=== PATIENT | female | born 1945 | race Caucasian/White ===

== ENCOUNTER 2016-02-25 18:19 | Inpatient (IN) | payer MEDICARE, BC ==
[~2016-02-25] VITALS: Ht 152.4 cm; Wt 43.4 kg
[~2016-02-25 18:19] MED LIST: ACETAMINOPHEN325 MG PO; BENZONATATE200 MG PO; CALMOSEPTINE OI71 GM TOPICAL; FLORAJEN3 CAPS460 MG PO; LEVOTHYROXINE50 MCG PO; LISINOPRIL10 MG PO; LOVENOX40 MG/0.4 SC; MUCINEX DM ER1 EAC1 PO; PROTONIX40 MG PO; RESTORIL15 MG PO; STERAPRED DS 1210 MG PO; XOPENEX 0.0.63 MG/3 INH
[2016-02-25 19:49] LABS: BASOPHILS 0.1 % (0.0-2.0); EOSINOPHILS 0 % (0-7); HEMATOCRIT 40.5 % (36.0-48.0); HEMOGLOBIN 13.4 g/dL (12-16); IMMATURE GRANULOCYTES 0.5 % (0-5); LYMPHOCYTES 6.1 % (15-50); MCH 29.1 pg (26.0-34.0); MCHC 33.1 g/dL (31.0-37.0); MCV 87.9 fL (80.0-100.0); MEAN PLATELET VOLUME 8.7 fL (7.4-10.4); MONOCYTES 4.1 % (2-11); NEUTROPHILS 89.2 % (40-80); RBC 4.61 10x6/uL (4.00-5.40); RDW 13.1 % (11.5-14.5); WBC 17.5 10x3/uL (4.8-10.8)
[2016-02-25 19:53] LABS: PLATELET COUNT 269 10x3/uL (130-400)
[2016-02-25 20:06] LABS: ALBUMIN 3.4 g/dL (3.4-5.0); ALKALINE PHOSPHATASE 67 U/L (46-116); ALT (SGPT) 17 U/L (10-68); BILIRUBIN - TOTAL 0.73 mg/dL (0.2-1.3); CALC OSMOLALITY 287 mosm/kg (275-300); CALCIUM 9.4 mg/dL (8.5-10.1); CARBON DIOXIDE 30.2 mmol/L (21.0-32.0); CHLORIDE - SERUM 103 mmol/L (98-107); CREATININE - SERUM 0.7 mg/dL (0.6-1.3); GLUCOSE 132 mg/dL (74-106); POTASSIUM - SERUM 3.8 mmol/L (3.5-5.1); PROTEIN - SERUM 7.3 g/dL (6.4-8.2); SODIUM 142 mmol/L (136-145); UREA NITROGEN 22 mg/dL (7-18); eGFR NON AFRICAN AMERICAN 88 mL/min (90-120)
[2016-02-25 20:53] LABS: APPEARANCE CLOUDY (CLEAR); BILIRUBIN NEGATIVE (NEGATIVE); COLOR YELLOW (YELLOW); GLUCOSE 50 mg/dL (NEGATIVE); KETONE MODERATE mg/dL (NEGATIVE); LEUKOCYTE ESTERASE 1+ (NEGATIVE); NITRITE NEGATIVE (NEGATIVE); PROTEIN 1+ mg/dL (NEGATIVE); UROBILINOGEN NORMAL (NORMAL)
[2016-02-25 20:54] LABS: BACTERIA MANY /hpf (NONE SEEN); EPITHELIAL CELLS 0-5 /hpf (0-5); MUCUS <1+ /lpf (NONE SEEN); RED CELLS - URINE 0-5 /hpf (0-5)
[2016-02-26] VITALS: BP 119/63
--- NOTE | 2016-02-26 00:20 | NUR ---
RECEIVED TO ROOM 2102 ALERT AND ORIENTED 70Y/O FEMALE UNDER DR HERNANDEZ WITH DX OF DIVERTICULITIS VIA W/C FROM ER. AT SIDE. PLACED ON FALL PRECAUTIONS, STAR ON DOOR, YELLOW BAND ON WRIST, NONSKID SOCKS PLACED ON BILAT FEET. BSC PROVIDED, HOB UP SR UP X2, C/L IN REACH. BOX ALARM PLACED, ON AND WORKING. VOICES NO C/O NAUSEA/VOMITING OR DIARRHEA OR PAIN AT THIS TIME. LEFT ARM IV WITH REDNESS NOTED AT SITE. ASPERRATES AND FLUSHES W/O DIFF. UP WITH ASSISTANCE ONLY. UNDERSTANDING VERBALIZED. CONTINUE TO MONITOR.
[2016-02-26 01:25] VITALS: BP 119/63; BMI 19.0
--- NOTE | 2016-02-26 02:30 | NUR ---
AWAKE, ALERT VOICES NO C/O. C/L IN REACH.
[2016-02-26 04:00] VITALS: BP 121/61
--- NOTE | 2016-02-26 04:36 | NUR ---
EYES CLOSED, RESP EVEN AND UNLABORED WITH NO S/S OF ACUTE DISTRESS NOTED. C/L IN REACH. CONTINUE TO MONITOR.
--- NOTE | 2016-02-26 08:01 | NUR ---
AM MEDS GIVEN UP TO BSC WITH ASSISTANCE. ALERT AND ORIENTED. BOX ALARM ON
--- NOTE | 2016-02-26 10:48 | NUR ---
PATIENT UP TO BSC WITH ASSISTANCE THIS AM. CO HEADACHE. DR WALLACE CALLED AND ORDERS RECEIVED FOR TYLENOL AND TO CHANGE TO INPT ADMIT. INFORMED PATIENT. NO APPARENT DISTRESS WILL CONTINUE TO MONITOR.
[2016-02-26 11:04] VITALS: Ht 152.4 cm; Wt 43.4 kg
--- NOTE | 2016-02-26 12:00 | NUR ---
RATIONALE FOR SCD'S EXPLAINED. REFUSED SCD'S
--- NOTE | 2016-02-26 18:00 | NUR ---
IV SL'D AT THIS TIME, LUCERO WELL. HOB UP SR UP X2, C/L IN REACH, ON FALL PRECAUTIONS FOR SAFETY, NONSKID SOCKS IN PLACE ON BILAT FEET. VISITING WITH AT BEDSIDE. VOICES NO C/O PAIN OR DISCOMFORT AT THIS TIME. CONTINUE TO MONITOR.
[2016-02-26 21:43] VITALS: BP 117/58
--- NOTE | 2016-02-26 22:55 | NUR ---
EYES CLOSED, RESP UNLAB WITH NO S/S OF ACUTE DISTRESS NOTED. HOB UP SR U X2, C/L IN REACH. CONTINUE TO MONITOR.
--- NOTE | 2016-02-26 23:12 | NUR ---
IVPB ANTIBIOTIC HUNG AT THIS TIME VIA PUMP TO LEFT FA W/O DIFF. LUCERO WELL. C/L IN REACH.
[2016-02-27 01:28] VITALS: BP 131/59
[2016-02-27 07:52] VITALS: BP 125/60
--- NOTE | 2016-02-27 08:20 | NUR ---
ASSESSMENT DONE. PT A/O. DENIES NEEDS. DIET ADVANCED TO SOFT. PT DENIES N/V OR ABD PAIN. CALL LIGHT WITH IN REACH. WILL CONT. TO MONIOR.
[2016-02-27 09:25] LABS: BASOPHILS 0.4 % (0.0-2.0); EOSINOPHILS 0.7 % (0-7); HEMATOCRIT 38.9 % (36.0-48.0); HEMOGLOBIN 12.9 g/dL (12-16); IMMATURE GRANULOCYTES 0.4 % (0-5); LYMPHOCYTES 17.8 % (15-50); MCH 28.9 pg (26.0-34.0); MCHC 33.2 g/dL (31.0-37.0); MONOCYTES 7.7 % (2-11); PLATELET COUNT 261 10x3/uL (130-400); RBC 4.47 10x6/uL (4.00-5.40); RDW 13.2 % (11.5-14.5)
[2016-02-27 09:37] LABS: WBC 7.4 10x3/uL (4.8-10.8)
--- NOTE | 2016-02-27 09:42 | NUR ---
LAB BEING DRAWN. NO DISTRESS. WILL CONTINUE TO MONITOR
[2016-02-27 09:55] LABS: ALBUMIN 2.7 g/dL (3.4-5.0); ALKALINE PHOSPHATASE 52 U/L (46-116); ALT (SGPT) 14 U/L (10-68); CALCIUM 8.3 mg/dL (8.5-10.1); CARBON DIOXIDE 25.3 mmol/L (21.0-32.0); CHLORIDE - SERUM 103 mmol/L (98-107); CREATININE - SERUM 0.6 mg/dL (0.6-1.3); GLUCOSE 140 mg/dL (74-106); POTASSIUM - SERUM 3.4 mmol/L (3.5-5.1); PROTEIN - SERUM 6.4 g/dL (6.4-8.2); SODIUM 140 mmol/L (136-145); eGFR NON AFRICAN AMERICAN > 90 mL/min (90-120)
[2016-02-27 09:56] LABS: CALC OSMOLALITY 280 mosm/kg (275-300); UREA NITROGEN 12 mg/dL (7-18)
[2016-02-27 12:08] VITALS: BP 131/53
--- NOTE | 2016-02-27 13:26 | NUR ---
PT SITTING UP IN BED VISITING WITH FAMILY. A/O. DENIES N/V/D. DENIES ABD PAIN. CALL LIGHT WITH IN REACH.
--- NOTE | 2016-02-27 15:27 | NUR ---
PT'S IV INFILTRATED. RE-SITED TO LEFT UPPER ARM WITH 20G X1 ATTEMPT. PT TOLERATED WELL.
[2016-02-27 15:51] VITALS: BP 141/63
--- NOTE | 2016-02-27 16:30 | NUR ---
PT SITTING UP IN BED WATCHING TV. A/O. DENIES NEEDS. CALL LIGHT WITH IN REACH. WILL CONT. TO MONITOR.
--- NOTE | 2016-02-27 18:36 | NUR ---
PT A/O WATCHING TV. DENIES NEEDS OR DISCOMFORT AT THIS TIME. CALL LIGHT WITH IN REACH.
--- NOTE | 2016-02-27 19:30 | NUR ---
ASSESSMENT COMPLETE, DENIES NEEDS AT THIS TIME. LYING SUPINE WITH HOB UP SR UP X2, C/L IN REACH. WATCHING TV WITH AT BEDSIDE. ON FALL PRECAUTIONS FOR SAFETY, DOES USE C/L FOR ASSISTANCE UP TO BSC. LUCERO WELL. NONSKID SOCKS IN PLACE. CONTINUES TO REFUSE TO WEAR SCDS. RESP EVEN AND UNLAB, LEFT UPPER ARM SL INTACT WITH NO R/S NOTED AT SITE. CONTINUE TO MONITOR.
[2016-02-27 21:06] VITALS: BP 121/56
--- NOTE | 2016-02-27 22:15 | NUR ---
EYES CLOSED, RESP EVEN AND UNLAB WITH NO S/S OF ACUTE DISTRESS NOTED. C/L IN REACH. CONTINUE TO MONITOR.
[2016-02-28 00:43] VITALS: BP 119/49
[2016-02-28 04:59] LABS: BASOPHILS 0.6 % (0.0-2.0); EOSINOPHILS 1.9 % (0-7); HEMOGLOBIN 12.8 g/dL (12-16); IMMATURE GRANULOCYTES 0.6 % (0-5); LYMPHOCYTES 28.7 % (15-50); MCH 28.6 pg (26.0-34.0); MCHC 32.8 g/dL (31.0-37.0); MCV 87.1 fL (80.0-100.0); MEAN PLATELET VOLUME 9.1 fL (7.4-10.4); NEUTROPHILS 56.2 % (40-80); PLATELET COUNT 296 10x3/uL (130-400); RBC 4.48 10x6/uL (4.00-5.40); RDW 13.1 % (11.5-14.5)
[2016-02-28 05:13] LABS: ALBUMIN 2.6 g/dL (3.4-5.0); ALKALINE PHOSPHATASE 46 U/L (46-116); ALT (SGPT) 13 U/L (10-68); BILIRUBIN - TOTAL 0.35 mg/dL (0.2-1.3); CALCIUM 8.7 mg/dL (8.5-10.1); CARBON DIOXIDE 28.1 mmol/L (21.0-32.0); CHLORIDE - SERUM 106 mmol/L (98-107); POTASSIUM - SERUM 3.6 mmol/L (3.5-5.1); SODIUM 142 mmol/L (136-145)
[2016-02-28 05:18] LABS: WBC 5.3 10x3/uL (4.8-10.8)
[2016-02-28 05:26] VITALS: BP 118/56
[2016-02-28 05:31] LABS: CALC OSMOLALITY 285 mosm/kg (275-300); CREATININE - SERUM 0.8 mg/dL (0.6-1.3); GLUCOSE 92 mg/dL (74-106); UREA NITROGEN 22 mg/dL (7-18); eGFR NON AFRICAN AMERICAN 75 mL/min (90-120)
--- NOTE | 2016-02-28 07:24 | HP ---
PATIENT: JERI LI MEDICAL RECORD: [id number] ACCOUNT: [id number] LOCATION:[address] : [birth year] ADMISSION DATE: 02/26/16 HISTORY AND PHYSICAL EXAMINATION Admission History and Physical HISTORY OF PRESENT ILLNESS: A 70-year-old female presented to the Emergency Room yesterday evening with nausea, vomiting, diarrhea, lower abdominal pain, subjective fever and chills. PAST MEDICAL HISTORY: Significant for hypertension and hypothyroidism. ALLERGIES: No known drug allergies. PRIMARY CARE PHYSICIAN: Nate Rich MD PAST SURGICAL HISTORY: Denies surgeries. CURRENT MEDICATIONS: Levothyroxine 50 mcg 1 p.o. daily. REVIEW OF SYSTEMS: CONSTITUTIONAL: No acute change in weight or appetite. HEENT: No cephalgia, visual changes, tinnitus, epistaxis or dysphagia. CARDIOVASCULAR: Denies chest pain, denies palpitations. PULMONARY: Denies hemoptysis, denies night sweats. GASTROINTESTINAL: Denies hematochezia, melena or hematemesis. Does admit nausea and vomiting last night, presently resolved. GENITOURINARY: Admits frequency, burning with urination. MUSCULOSKELETAL: No acute changes. ENDOCRINE: Denies polyuria, polydipsia, or polyphagia. PHYSICAL EXAMINATION: VITAL SIGNS: Temp 98.6, blood pressure is 121/61, heart rate 90, respirations 18, and O2 sats 98% room air. GENERAL: Alert and oriented, in no present distress. HEENT: Normocephalic and atraumatic. Eyes: Pupils are equal, round, and reactive to light and accommodation. Extraocular muscles are intact. Conjunctiva was not injected. Ears: Canals patent, TMs are intact. Nose: Nares patent without drainage. Throat: No erythema, no exudates. NECK: Supple. No lymphadenopathy, no JVD. HEART: Regular rate and rhythm. LUNGS: Clear to auscultation bilaterally. Breathing is nonlabored. ABDOMEN: Soft, mild lower abdominal tenderness. No rebound, no guarding. EXTREMITIES: Present times 4, no edema. NEUROLOGIC: Intact. SKIN: Warm and dry. No rash. LABORATORY DATA: Urinalysis: Yellow, cloudy, moderate ketones, 1+ leukocyte esterase, 5-10 wbc's per high powered field, many bacteria. CBC: White count 17,500, hemoglobin 13.4, hematocrit 40.5, and platelets 269. Chemistry shows a sodium of 142, potassium 3.8, chloride 103, bicarbonate 30.2, BUN 22, creatinine 0.7, and glucose of 132. LFTs is normal. Blood and urine cultures are pending. DIAGNOSTIC DATA: CT abdomen and pelvis shows acute diverticulitis, sigmoid HISTORY AND PHYSICAL [id number] JERI LI colon. No abscess or perforation. Also, incidental finding of a 2.4 x 1.4 cm left lower lobe peripheral pulmonary nodule, suspicious for malignancy. ASSESSMENT AND PLAN: 1. Acute urinary tract infection. She was started on Levaquin 500 mg IV q.24 hours in the ER. We will continue. 2. Diverticulitis, metronidazole 500 mg t.i.d. IV. 3. Hypothyroid. Continue levothyroxine 50 mcg daily. 4. A 2.4 x 1.4 cm left lower lobe peripheral pulmonary nodule. Recommend a PET scan as an outpatient and follow up with her primary care physician, Dr. Nate Rich. TRANSINT:[id number] Voice Confirmation ID: [id number] DOCUMENT ID: [id number] CHYNA HERNANDEZ DO at 0724 CC: [id number] DICTATION DATE: 02/26/16 0657 DRYWALL BOARDHANGER: 02/26/16716 ADM IN [place] [id number] [place] [id number]
[2016-02-28] MEDS ORDERED: FLORAJEN3 CAPS460 MG PO (07:31)
[2016-02-28] MEDS ORDERED: FLAGYL500 MG PO (07:33)
[2016-02-28] MEDS ORDERED: LEVAQUIN500 MG PO (07:34)
--- NOTE | 2016-02-28 07:51 | NUR ---
ASSESSMENT DONE. PT A/O. SITTING UP IN BED WATCHING TV. DENIES N/V/D OR ABD PAIN. CALL LIGHT WITH IN REACH. WILL CONT. TO MONITOR.
[2016-02-28 08:00] VITALS: BP 126/51
--- NOTE | 2016-02-28 08:20 | NUR ---
Patient Name: JERI LI Admission Status: ER Accout number: [id number] Admission Date: 02-26-2016 : 1945 Admission Diagnosis: Attending: MEDINA Current LOS: 2 Anticipated DC Date: 02-28-2016 Planned Disposition: Home Primary Insurance: MEDICARE A & B Is the patient Alert and Oriented? Yes * How many steps to enter\exit or inside your home? 12 * PCP DR SANTIAGO * Pharmacy [facility] [address] * Preadmission Environment Home with Family * ADLs Partial Dependent * Partial ADLs (Assistance needed) Ambulation: PT USES CANE AND ROLLING WALKER DME PROVIDER: CAROLINE * Equipment Cane Other Rolling Walker Tub Bench * Other Equipment HAND HELD SHOWER NOZEL, ANTI-SLIP MAT IN TUB/SHOWER HAND RAIL FULL LENGHT OF [place] AND DOUBLE HAND RAILS AT TOP AND BOTTOM OF [place]. * List name and contact numbers for known caregivers / representatives who currently or will assist patient after discharge: RADHA STEIN, SPOUSE, (CELL) [phone] (HOME) * Community resources currently utilized None * Please name any agencies selected above. PT HAS PREVIOUSLY USED [employer] IN THE PAST AND INFORMED THAT SHE WAS VERY HAPPY WITH [employer]. * Additional services required to return to the preadmission environment? No * Can the patient safely return to the preadmission environment? Yes * Has this patient been hospitalized within the prior 30 days at any hospital? No Discharge Planning Comments: CM MET WITH PATIENT TO ASSESS DC PLAN/NEEDS. PT STATED SHE LIVES AT HOME WITH HER AND IS MOSTLY INDEPENDENT IN HER CARE/ADL'S. SHE STATED SHE USES A CANE MOSTLY AROUND HER HOUSE AND USES HER ROLLING WALKER ANY TIME SHE GOES OUT OF THE HOUSE. SHE STATED HER DRIVES HER AND WILL PROVIDE HER TRANSPORTATION HOME AT DISCHARGE. SHE HAS TWELVE STEPS INSIDE HER HOME, BUT HAS SAFETY RAILING AND STATED SHE HAS BEEN MANAGING STAIRS WELL WITH NEW RAILING HER INSTALLED. SHE STATED SHE HAS USED [facility] IN THE PAST AND WAS VERY PLEASED WITH THEIR SERVICES, BUT DOES NOT FEEL SHE WILL NEED HOME HEALTH OR ANY REHAB SERVICES AT THIS DISCHARGE. SHE STATED SHE HAS ALL NEEDED DME EQIUPMENT AND VOICED NO DME NEEDS. SHE REPORTED HER WALKER WAS PROVIDED BY [employer]. PT STATED HER HOME IS A SAFE PLACE AND PLANS TO RETURN HOME WITH HER AT DISCHARGE. DM IMM PRESENTED TO PATIENT. IMM SIGNED AND PLACED IN CHART. Mechanic Senior: Char Lindsey RN
--- NOTE | 2016-02-28 10:00 | NUR ---
REC'D PT FROM ICU VIA BED. PT A/O X3. BROWN CATH PATENT TO BSD WITH APPROX 450ML OF DARK YELLOW URINE. 20G IV TO RIGHT FOREARM PATENT WITH NS@ 75ML/HR INFUSING. IV WITH OUT S/S INFILTRATION. PT WEARING SCD'S. SCD'S REMOVED AND SKIN ASSESSED. NO S/S OF BREAKDOWN. PT'S BOTTOM WITHOUT BREAKDOWN OR REDNESS. PT IS ABLE TO ASSIST WITH TURNING. O2 AT 2L VIA NC. VS - B/P 153/70, P70, R16, T97.4, O2 SAT 99%. ORIENTED PT TO ROOM. PLACED CALL LIGHT AND PHONE WITH IN REACH. PT IS WEARING GLASSES AND HAS DENTURES IN. SHE WEARS BOTH UPPERS AND LOWERS. PT DOES NOT WANT TO USE A PILLOW AT THIS TIME. WILL CONT. TO MONITOR.
--- NOTE | 2016-02-28 10:18 | NUR ---
NO NEEDS VOICED. AT BS. CALL LIGHT IN REACH. WILL CONT. PLAN OF CARE.
--- NOTE | 2016-02-28 10:31 | NUR ---
DISCHARGE INSTRUCTIONS GIVEN TO PT AND SPOUSE. IV REMOVED. PT D/C HOME VIA PRIVATE VEHICLE. TAKE OUT VIA W/C.
--- NOTE | 2016-02-29 07:57 | DS ---
PATIENT:JERI LI :45 MEDICAL RECORD: [id number] DISCHARGE SUMMARY ADMISSION DATE: 02/26/16 DISCHARGE DATE: 02/28/16 DATE OF ADMISSION: 02/26/2016. DATE OF DISCHARGE: 02/28/2016. ADMISSION DIAGNOSES: Acute urinary tract infection and diverticulitis. Also, history of hypothyroidism. Also, a history of a lower lobe pulmonary nodule. Further research--this has been seen prior and is unchanged, she has had prior PET scan prior evaluation. HOSPITAL COURSE: The patient was admitted to the Emergency Room unassigned medicine. Her primary care physician is Dr. Wan Rich. She had chills, fever, leukocytosis, dysuria and change in bowel habits, diarrhea. CT scan showed a sigmoid diverticulitis, no abscess in the stable pulmonary nodules. White count on admission was 17,500. She was started on IV Flagyl and IV Levaquin for the UTI. Clear liquid diet. She improved rapidly. She is tolerating a regular diet. She is afebrile. White count 5.3.: Hemoglobin is 12.8, hematocrit is 39. Chemistries: Sodium 142, potassium 3.6, chloride 106, bicarbonate 28.1. BUN 22, creatinine 0.8. She is alert and oriented, in no distress. Vital signs on discharge temperature 97.5, blood pressure 118/56, heart rate 85, respirations 18, O2 sat 97% on room air. She is alert and oriented. No distress, anxious to go home. CONDITION ON DISCHARGE: She is discharged in significantly improved condition. We will discharge with p.o. Flagyl for 10 more days t.i.d. 500 mg t.i.d. She will resume her levothyroxine. She is also discharged on Levaquin 500 mg p.o. daily for 5 days. She will follow up with Dr. Rich and return to the ER with any worsening symptoms. School Secretary on a bland diet, advance as tolerated. TRANSINT:[id number] Voice Confirmation ID: [id number] DOCUMENT ID: [id number] CHYNA HERNANDEZ DO at 0757 CC: [id number] DICTATION DATE: 02/28/16 0740 TRANSFORMATION ANALYST: 02/28/16 0758 DIS IN 02/28/[address] [facility] [address] [place] [address]
== END 2016-02-28 10:35 | disposition home or self-care (01) | DRG 690 ==
LOC: D.ER 18:19 → OBSVTIME 23:53 → D.M2 23:53
PROVIDERS: Emergency Medicine; Family Medicine; Nurse Practitioner Family; ADMIT Family Medicine
DX: N39.0 Urinary tract infection, site not specified (principal); K57.92 Diverticulitis of intestine, part unspecified, without perforation or abscess without bleeding

== ENCOUNTER → 2016-03-13 08:27 | Outpatient (CLI) | payer MEDICARE, BC ==
[2016-02-26 11:04] VITALS: BMI 18.9
[~2016-03-13 08:27] MED LIST changes: +FLAGYL500 MG PO; +LEVAQUIN500 MG PO
== END | disposition home or self-care (01) ==
LOC: D.RAD 08:27
DX: R91.8 Other nonspecific abnormal finding of lung field (principal)

== ENCOUNTER → 2016-09-24 08:16 | Outpatient (CLI) | payer MEDICARE, BC ==
[2016-02-26 11:04] VITALS: BMI 18.9
[2016-09-24 10:38] LABS: CREATININE - SERUM 0.9 mg/dL (0.6-1.3)
== END | disposition home or self-care (01) ==
LOC: D.RT 08:16
PROVIDERS: Internal Medicine Pulmonary Disease
DX: R91.1 Solitary pulmonary nodule (principal)

== ENCOUNTER 2017-11-04 19:31 | Observation (INO) | payer MEDICARE, BC ==
[~2017-11-04] VITALS: Ht 152.4 cm; Wt 43.6 kg
--- NOTE | ~2017-11-04 | OP ---
PATIENT NAME: JERI LI MEDICAL RECORD: [id number] :45 [facility] ADMISSION DATE:11/04/17 SURGEON: SAY JONES MD DATE OF OPERATION: 11/05/2017 PROCEDURES: 1. PTCA stent RCA. 2. Left heart catheterization. 3. Selective coronary angiography. 4. Left ventriculogram. PROCEDURE IN DETAIL: After informed consent was obtained and after a detailed description of risks, benefits as well as alternative therapies, the patient elected to proceed with angiogram and angioplasty. The right femoral area was prepped and draped in normal sterile fashion. Right femoral artery was cannulated via modified Seldinger technique with placement of 6-Setswana sheath. All catheters exchanged through this sheath. FINDINGS: Left ventriculogram was performed in standard 30-degree ALANIZ view, reveals good cardiac wall motion throughout all segments. Overall ejection fraction estimated 60%. SELECTIVE CORONARY ANGIOGRAPHY: 1. Left main is with no significant angiographic disease. 2. Left anterior descending has moderate irregularities, but no flow-limiting stenosis. 3. The left circumflex has moderate irregularities, but no flow-limiting stenosis. 4. The right coronary artery has 95% stenosis in the mid vessel. PTCA STENT OF THE RIGHT CORONARY: The stent used was a 2.75 x 18 mm Cristo. Result was 0% residual stenosis. OVERALL IMPRESSION: Successful percutaneous transluminal coronary angioplasty stent of the right coronary artery going from 95% initial stenosis to 0% residual. TRANSINT:[id number] Voice Confirmation ID: [id number] DOCUMENT ID: [id number] SAY JONES MD at 1439 CC: [id number] DICTATION DATE: 11/05/17 1147 HAT AND CAP PARTS CUTTER HAND: 11/05/17 1156 ADM IN [place] [id number] [place] [address]
--- NOTE | ~2017-11-04 | DS ---
PATIENT:JERI HERNANDEZ :45 MEDICAL RECORD: [id number] DISCHARGE SUMMARY ADMISSION DATE: 11/04/17 DISCHARGE DATE: DISCHARGE DIAGNOSES: 1. Unstable angina. 2. Coronary artery disease. 3. Percutaneous transluminal coronary angioplasty stent right coronary artery this admission. HOSPITAL COURSE: Mrs. Hernandez presents with unstable anginal symptomatology, found to have single vessel disease of the RCA, underwent successful PTCA stent of the RCA. She was discharged home with the addition of aspirin and Plavix to her medical regimen. Will follow up with [facility] in 1 month. TRANSINT:[id number] Voice Confirmation ID: [id number] DOCUMENT ID: [id number] SAY JONES MD at 1439 CC: [id number] DICTATION DATE: 11/05/17 1146 DIRECTOR OF APPLICATION DEVELOPMENT: 11/05/17 1149 ADM IN [place] [id number] [place] [address]
--- NOTE | ~2017-11-04 | HEMODYNAMI ---
PATIENT:JERI LI MEDICAL RECORD: [id number] : 45 [facility] [id number] ADMISSION DATE: 11/04/17 Generatedon:11/05/201711:47 Patient name: JERI LI Patient #: [id number] SSN: D OB: 1945 Date of study: 11/05/2017 Page: Of Hemodynamic Procedure Report Patient Data Patient Demographics Procedure consent was obtained First Name: JERI Gender: Female Last Name: JEN : 1945 Middle Initial: E Age: 72 year(s) Patient #: [id number] Race: Unknown Additional ID: [id number] Contact details Address: [address] [place] [address] State: [place] City: [facility] Zip code: [address] Past Medical History Allergies: No known allergies Admission Admission Data Admission Date: 11/04/2017 Admission Time: 21:24 Room #: D.2128 Height (in.): 60 BSA: 1.37 (m2) Height (cm.): 152.4 BMI: 18.77 (kg/m2) Weight (lbs.): 96.12 Weight (kg.): 43.6 Lab Results Lab Result Date: 11/05/2017 Lab Result Time: 0:00 Biochemistry Name Units Result Min Max BUN mg/dl 25 --(----)-* 7 18 Creatinine mg/dl 0.9 --(-*--)-- 0.6 1.3 CBC Name Units Result Min Max Hemoglobin g/dl 13.4 -*(----)-- 13.5 17.5 Procedure Procedure Types Cath Procedure Diagnostic Procedure [facility] w/Coronaries PCI Procedure Coronary Stent Coronary Stent Initial Procedure Description Procedure Date Procedure Date: 11/05/2017 Procedure Start Time: 11:31 Procedure End Time: 11:45 Procedure Staff Name Function Teddy Boateng MD Performing Physician Debra Grant RT Therapist Respiratory Tessy Lou RT Monitor Joaquim Lorigan RN Nurse Procedure Data Cath Procedure Fluoroscopy Diagnostic fluoroscopy Total fluoroscopy Time: 1.8 time: 1.8 min min Diagnostic fluoroscopy Total fluoroscopy dose: 49 dose: 49 mGy mGy Contrast Material Contrast Material Type Amount (ml) Isovue 300 53 Entry Location Entry Primary Successful Side Size Upsize Upsize Entry Closure Succes sful Closure Location (Fr) 1 (Fr) 2 (Fr) Remarks Device Remarks Femoral Right 5 Fr 6 Fr artery Short Estimated blood loss: 10 ml Diagnostic catheters Device Type Used For End Catheter Placement MULTIPACK Pigtail 5 Fr Procedure catheter MULTIPACK JL 4.0 5Fr Procedure catheter MULTIPACK 3DRC 5Fr Procedure catheter Procedure Complications No complications Procedure Medications Medication Administration Route Dosage 0.9% NaCl I.V. 100 ml/hr Oxygen etCO2 Nasal cannula 2 l/min Heparin Flush Bag added to field 2 bags (1000units/500ml NS) Lidocaine 2% added to field 20 Benadryl I.V. 50 mg Versed I.V. 2 mg Fentanyl I.V. 100 mcg Heparin Bolus I.V. 4000 units Hemodynamics Rest BSA: 1.37 (m2) HGB: 13.4 (g/dl) O2 Consumption: Estimated: 130.87 (ml/min) O2 Co nsumption indexed: Estimated:95.53 (ml/min/m) Heart Rate: 80 (bpm) Snapshots Pre Cath Intra NCS Post Cath Vital Signs Time Heart Resp SPO2 etCO2 NIBP (mmHg) Rhythm Pain Sedation Rate (ipm) (%) (mmHg) Status Level (bpm) 11:09:15 82 12 98 34.6 152/70(106) NSR 0 (11) 10(A) , No pain 11:13:31 78 12 98 33.9 138/67(100) NSR 0 (11) 10(A) , No pain 11:17:43 79 12 98 22.6 143/67(100) NSR 0 (11) 10(A) , No pain 11:21:57 77 12 98 21.8 135/64(93) NSR 0 (11) 10(A) , No pain 11:26:09 78 12 98 12.8 136/66(98) NSR 0 (11) 10(A) , No pain 11:30:23 76 15 97 9 131/61(93) NSR 0 (11) 10(A) , No pain 11:34:35 81 14 97 21.8 135/62(89) NSR 0 (11) 9(A) , No pain 11:38:49 82 15 97 12 130/61(91) NSR 0 (11) 9(A) , No pain 11:42:57 100 11 99 37.6 139/73(95) NSR 0 (11) 10(A) , No pain Medications Time Medication Route Dose Verified Delivered Reason Notes Effectiveness by by 11:07:12 0.9% NaCl I.V. 100 Joaquim Joaquim Per physician ml/hr Martine Farley RN RN 11:07:22 Oxygen etCO2 2 Joaquim Joaquim Per physician Nasal l/min Martine Farley cannula RN RN 11:07:34 Heparin Flush added 2 Joaquim Joaquim used for Bag to bags Martine Farley procedure (1000units/500ml field CAMACHO RN NS) 11:07:45 Lidocaine 2% added 20ml Joaquim Joaquim for local to vial Martine Farley anesthetic RN RN 11:07:58 Benadryl I.V. 50 mg Joaquim Joaquim Per physician Martine Farley RN RN 11:30:07 Versed I.V. 2 mg Joaquim Joaquim for sedation Martine Farley RN RN 11:30:15 Fentanyl I.V. 100 Joaquim Joaquim for sedation mcg Martine Farley RN RN 11:39:52 Heparin Bolus I.V. 4000 Joaquim Joaquim for units Martine Farley anticoagulation RN pyrotechnics press tender Log Time Note 10:45:52 Patient Height : 60 inches 10:45:57 Patient Weight : 96.12 lbs 10:46:48 Lab Result : Hemoglobin 13.4 g/dl 10:46:48 Lab Result : Creatinine 0.9 mg/dl 10:46:48 Lab Result : BUN 25 mg/dl 10:47:20 Diagnostic Cath status Elective 10:47:22 Debra Grant RT(R) sent for patient. Start room use. 10:47:24 Time tracking: Regular hours (M-F 7:00 - 5:00) 10:48:53 Plan of Care:Hemodynamics will remain stable., Cardiac rhythm will remain stable., Comfort level will be maintained., Respiratory function will remain adequate., Patient/ family verbilizes understanding of procedure., Procedure tolerated without complication., Recovers from procedure without complications.. 11:07:12 0.9% NaCl 100 ml/hr I.V. was administered by Joaquim Farley RN; Per physician; 11:07:22 Oxygen 2 l/min etCO2 Nasal cannula was administered by Joaquim Farley RN; Per physician; 11:07:34 Heparin Flush Bag (1000units/500ml NS) 2 bags added to field was administered by Joaquim Farley RN; used for procedure; 11:07:45 Lidocaine 2% 20ml vial added to field was administered by Joaquim Farley RN; for local anesthetic; 11:07:58 Benadryl 50 mg I.V. was administered by Joaquim Farley RN; Per physician; 11:08:02 Vital chart was started 11:12:47 Patient received from [employer] to [facility] Alert and oriented. Tansferred to table in Supine position. 11:12:48 Warm blankets applied, and albert hugger turned on for patient comfort. 11:12:50 Correct patient and procedure confirmed by team. 11:12:52 Signed procedure consent form obtained from patient. 11:12:53 ECG and BP/O2 sat monitors applied to patient. 11:12:54 Baseline sample Acquired. 11:12:58 Rhythm: sinus rhythm 11:13:00 Full Disclosure recording started 11:13:09 H&P Date Dictated: 11/04/2017 Within 30 days and on chart., H&P Addendum completed by physician on day of procedure. (MUST COMPLETE FOR ALL OUTPATIENTS). 11:13:14 Pre-procedure instructions explained to patient. 11:13:17 Family in patients room. 11:13:19 Patient NPO since Midnight. 11:13:26 Patient allergic to No known allergies 11:13:33 Is patient on blood thinner?Yes 11:13:35 ACC The patient was administered the following blood thiners within the last 24 hours: ACCPlavix 11:13:38 Patient diabetic? No. 11:13:42 Snore? No 11:13:44 Sleep apnea? No 11:13:47 Dentures? No ? 11:13:57 Patient pain scale 2/10 ?. 11:14:07 IV patent on arrival in right wrist with 0.9% NaCl at [facility]. 11:14:14 Right groin area was prepped with chlora-prep and draped in sterile fashion 11:14:15 Alarms reviewed by R. N. 11:14:15 Sharps counted by scrub and verified by R.N. 11:14:16 Physician paged 11:14:20 Use device set Femoral Dx 11:14:25 ACIST Syringe (70588) opened to sterile field. 11:14:25 Bag Decanter (2002S) opened to sterile field. 11:14:26 Medline Cath Pack ([id number]) opened to sterile field. 11:14:26 DIAGNOSTIC WIRE .035 260cm J wire ([id number]) opened to sterile field. 11:14:27 ACIST Hand Control (87790) opened to sterile field. 11:14:28 ACIST Manifold (10178) opened to sterile field. 11:14:29 Tegaderm 4 x 4 (1626W) opened to sterile field. 11:14:30 PERCUTANEOUS ENTRY 19GA needle opened to sterile field. 11:14:32 SHEATH Prelude 5Fr 0.035 (FRV-3D-50-035) opened to sterile field. 11:14:37 Zero performed for pressure channel P1 11:14:40 Zero performed for pressure channel P1 11:14:50 Zero performed for pressure channel P1 11:28:55 Physician arrived 11::56 --------ALL STOP TIME OUT------ 11:28:57 Final Timeout: patient, procedure, and site verified with staff and physician. All members of the team are in agreement. 11:29:00 Right groin site verified by team. 11:29:04 Physical assessment completed. ASA score P 2 - A patient with mild systemic disease as per Teddy Boateng MD. 11:29:08 Sedation plan: IV Moderate Sedation Medication:Versed, Fentanyl 11:30:07 Versed 2 mg I.V. was administered by Joaquim Farley RN; for sedation; 11:30:15 Fentanyl 100 mcg I.V. was administered by Joaquim Farley RN; for sedation; 11:31:25 Procedure started. 11:31:59 Local anesthetic to right femoral artery with Lidocaine 2% by Teddy Boateng MD.INITIAL ACCESS ONLY 11:32:56 A 5 Fr sheath was inserted into the Right Femoral artery 11:33:15 DIAGNOSTIC Multipack 5Fr catheter set ([id number]) opened to sterile field. 11:33:22 A MULTIPACK Pigtail 5 Fr catheter was advanced over the wire and used for Procedure. 11:33:25 LV angiography performed. 11:33:51 EF : 70 % 11:33:56 Catheter removed. 11:34:04 A MULTIPACK JL 4.0 5Fr catheter was advanced over the wire and used for Procedure. 11:34:10 LCA angiography performed. 11:35:03 Catheter removed. 11:35:11 A MULTIPACK 3DRC 5Fr catheter was advanced over the wire and used for Procedure. 11:35:20 RCA angiography performed. 11:36:06 Catheter removed. 11:36:28 SHEATH Prelude 6Fr 0.035 (OIL-9K-48-035) opened to sterile field. 11:36:39 Sheath upsized to a 6 Fr Short. 11:37:08 INFLATOR Merit BasixCompak (FN7656) opened to sterile field. 11:37:10 GUIDE 6FR AR 1.0 SH catheter ([id number]) opened to sterile field. 11:37:11 CHOICE PT Extra Support 182cm wire ([id number]) opened to sterile field. 11:38:08 6 Fr AR1SH guide catheter was inserted over the wire 11:38:19 choice pt ex wire advanced. 11:38:21 Wire advanced across lesion. 11:39:52 Heparin Bolus 4000 units I.V. was administered by Joaquim Farley RN; for anticoagulation; 11:40:19 Place stent Inflation Number: 1 A JAMEL RX 2.75 x 18 stent ([id number]) was prepped and advanced across the Dist RCA. The stent was deployed at 17 SAIMA for 0:06 (min:sec). 11:40:37 Stent catheter was removed intact over wire. 11:40:46 EXOSEAL 6Fr (EX600) opened to sterile field. 11:40:50 Wire removed. 11:40:50 Guide catheter removed. 11:42:44 Procedure ended.(Physican Out) 11:44:11 Fluoroscopy time 01.80 minutes. 11:44:17 Fluoroscopy dose: 49 mGy 11:44:17 Flurop Dose total: 49 11:44:23 Contrast amount:Isovue 300 53ml. 11:44:26 Sharps counted by scrub and verified by R.N. 11:44:27 Insertion/operative site no bleeding no hematoma. 11:44:31 Post-op/insertion site Right Femoral artery dressed using a 4 x 4 and Tegaderm. 11:44:34 Post Procedure Pulses reassessed and unchanged 11:44:39 Post-procedure physical assessment completed. ASA score P 2 - A patient with mild systemic disease as per Teddy Boateng MD. 11:44:45 Post procedure rhythm: unchanged. 11:44:48 Estimated blood loss: 10 ml 11:44:51 Post procedure instruction explained to patient.Patient verbalizes understanding. 11:45:02 Procedure type changed to Cath procedure, Diagnostic procedure, LHC, LHC w/Coronaries, PCI procedure, Coronary Stent, Coronary Stent Initial 11:45:03 Procedure and supply charges have been captured, reviewed, submitted and are correct. 11:45:23 Procedure Complication : No complications 11:45:27 Vital chart was stopped 11:45:27 See physician's report for complete and final results. 11:45:30 Patient transfered to Pre/Post Procedure Room with Stretcher. 11:45:33 Procedure ended. 11:45:33 Full Disclosure recording stopped 11:45:36 End room use (Document Last) 11:46:38 ACC-PCI Only Patient was given prescriptions, or instructed by Teddy Boateng MD to start/continue the following medications upon discharge: Plavix Intervention Summary Intervention Notes Time ActionType Lesion and Equipment Used Action# Pressure Duration Attributes 11:40:19 Place stent Dist RCA JAMEL RX 2.75 x 1 17 00:06 18 stent ([id number]) Device Usage Item Name Manufacture Quantity Catalog Number Hospital Part Current Minimal Lot# / Charge Number Stock Stock Serial# Code ACIST Syringe Acist 1 27069 978331 [id number] [id number] 20 (55097) Medical Systems Inc Bag Decanter Microtek 1 275668 05397 097159 5 () Medical Inc. Medline Cath Cardinal 1 [id number] 825308 42476 889888 5 Pack Health ([id number]) DIAGNOSTIC WIRE [facility] [place] 1 035506 323415 893611 369887 30 .035 260cm J wire (788737) ACIST Hand Acist 1 13728 503105 894505 268266 5 Control (76901) Medical Systems Inc ACIST Manifold Acist 1 82474 205259 480156 256825 5 (66487) Medical Systems Inc Tegaderm 4 x 4 3M 1 1626W 253258 231500 609475 5 (1626W) PERCUTANEOUS Cook Medical 1 B55121 795395 070028 5 ENTRY 19GA needle SHEATH Prelude Merit 1 [id number] 798477 575904 812575 5 5Fr 0.035 Medical (DJG-9B-68035) DIAGNOSTIC Cardinal 1 [id number] 374520 28125 609989 30 Multipack 5Fr Health catheter set (DA6640) MULTIPACK Cardinal 1 242484 5 Pigtail 5 Fr Health catheter MULTIPACK JL Cardinal 1 539375 5 4.0 5Fr Health catheter MULTIPACK 3DRC Cardinal 1 235623 5 5Fr catheter Health SHEATH Prelude Merit 1 [id number]-[id number] 439241 7389836 343677 5 6Fr 0.035 Medical ([id number]-8Q-52035) INFLATOR Merit Merit 1 UG0113 076221 907190 793249 15 Store EyesscRealm Medical (HS9859) GUIDE 6FR AR Medtronic 1 [id number] 114938 43189 583464 1 1.0 SH catheter ([id number]) CHOICE PT Extra Shamrock 1 [id number] 528830 403068 833624 5 Support 182cm Scientific wire ([id number]) JAMEL RX 2.75 x Medtronic 1 [id number] 040354 6291261 527170 5 [id number] 18 stent ([id number]) EXOSEAL 6Fr Cardinal 1 EX600 986567 407402 472046 10 (EX600) Health Signature Audit [place] Stage Time Signature Unsigned Intra-Procedure 11/05/2017 Tessy Lou 11:46:55 AM RT(R) Signatures Monitor : Tessy Lou Signature : RT Date : Time : [facility] [address] [place] [address]
[2017-11-04] MEDS ORDERED: FLUTICASONE PRO16 GM NASAL (19:40)
[2017-11-04] MEDS ORDERED: BROVANA15 MCG/2 M INH (19:40)
[2017-11-04] MEDS ORDERED: SINGULAIR10 MG PO (19:41)
[2017-11-04] MEDS ORDERED: VENTOLIN HFA18 GM INH (19:41)
[2017-11-04 19:59] VITALS: BP 128/48
[2017-11-04 20:08] LABS: BASOPHILS 0.2 % (0-2); EOSINOPHILS 0.7 % (0-7); HEMATOCRIT 39.6 % (36.0-48.0); HEMOGLOBIN 13.4 g/dL (12-16); IMMATURE GRANULOCYTES 0.4 % (0-5); LYMPHOCYTES 13.6 % (15-50); MCH 31.2 pg (26.0-34.0); MCHC 33.8 g/dL (31.0-37.0); MCV 92.3 fL (80.0-100.0); MEAN PLATELET VOLUME 9.1 fL (7.4-10.4); MONOCYTES 5.6 % (2-11); NEUTROPHILS 79.5 % (40-80); RBC 4.29 10x6/uL (4.00-5.40); RDW 13.5 % (11.5-14.5); WBC 8.2 10x3/uL (4.8-10.8)
[2017-11-04 20:21] LABS: PLATELET COUNT 204 10x3/uL (130-400)
[2017-11-04 20:30] LABS: ALBUMIN 3.3 g/dL (3.4-5.0); ALKALINE PHOSPHATASE 52 U/L (46-116); ALT (SGPT) 20 U/L (10-68); BILIRUBIN - TOTAL 0.55 mg/dL (0.2-1.3); CALC OSMOLALITY 296 mosm/kg (275-300); CALCIUM 8.7 mg/dL (8.5-10.1); CARBON DIOXIDE 28.7 mmol/L (21.0-32.0); CHLORIDE - SERUM 106 mmol/L (98-107); CREATININE - SERUM 0.9 mg/dL (0.6-1.3); GLUCOSE 138 mg/dL (74-106); POTASSIUM - SERUM 3.8 mmol/L (3.5-5.1); PROTEIN - SERUM 6.4 g/dL (6.4-8.2); SODIUM 146 mmol/L (136-145); UREA NITROGEN 25 mg/dL (7-18); eGFR NON AFRICAN AMERICAN 65 mL/min (90-120)
[2017-11-04 20:43] LABS: APTT 22.8 SECONDS (22.8-39.4); INR 0.89 (0.85-1.17); PROTIME 11.7 SECONDS (11.6-15.0)
[2017-11-04 20:44] LABS: D-DIMER-QUANTITATIVE 0.31 ug/mLFEU (0.20-0.54)
[2017-11-04 20:49] LABS: CKMB 1.2 U/L (0.0-3.6); CREATINE KINASE 57 UL (21-215); PRO BNP 82 pg/mL (0-125)
[2017-11-04 20:52] LABS: TROPONIN-I < 0.017 ng/mL (0.000-0.060)
[2017-11-04 21:00] VITALS: BP 123/47
[2017-11-04 22:08] LABS: TROPONIN-I 0.02 ng/mL (0.000-0.060)
[2017-11-05 01:57] VITALS: BP 151/77
[2017-11-05 03:17] LABS: BASOPHILS 0.3 % (0-2); HEMATOCRIT 35.4 % (36.0-48.0); HEMOGLOBIN 11.7 g/dL (12-16); IMMATURE GRANULOCYTES 0.3 % (0-5); LYMPHOCYTES 26.3 % (15-50); MCH 30.5 pg (26.0-34.0); MCHC 33.1 g/dL (31.0-37.0); MCV 92.2 fL (80.0-100.0); MEAN PLATELET VOLUME 9.1 fL (7.4-10.4); MONOCYTES 8.8 % (2-11); NEUTROPHILS 63.3 % (40-80); PLATELET COUNT 197 10x3/uL (130-400); RBC 3.84 10x6/uL (4.00-5.40); RDW 13.5 % (11.5-14.5); WBC 6.3 10x3/uL (4.8-10.8)
[2017-11-05 03:40] LABS: ALBUMIN 2.7 g/dL (3.4-5.0); ALKALINE PHOSPHATASE 38 U/L (46-116); ALT (SGPT) 17 U/L (10-68); BILIRUBIN - TOTAL 0.44 mg/dL (0.2-1.3); CALC OSMOLALITY 292 mosm/kg (275-300); CARBON DIOXIDE 26.6 mmol/L (21.0-32.0); CHLORIDE - SERUM 110 mmol/L (98-107); CREATINE KINASE 49 UL (21-215); CREATININE - SERUM 0.8 mg/dL (0.6-1.3); GLUCOSE 99 mg/dL (74-106); PROTEIN - SERUM 5.3 g/dL (6.4-8.2); SODIUM 145 mmol/L (136-145); UREA NITROGEN 24 mg/dL (7-18); eGFR NON AFRICAN AMERICAN 75 mL/min (90-120)
[2017-11-05 03:50] LABS: TROPONIN-I < 0.017 ng/mL (0.000-0.060)
[2017-11-05 04:20] VITALS: BP 151/77; Ht 152.4 cm; Wt 43.6 kg
[2017-11-05 06:34] VITALS: BP 116/51
[2017-11-05 07:48] VITALS: BP 127/62
[2017-11-05 09:54] LABS: CKMB 0.9 U/L (0.0-3.6); CREATINE KINASE 55 UL (21-215); TROPONIN-I < 0.017 ng/mL (0.000-0.060)
[2017-11-05] MEDS ORDERED: PLAVIX75 MG PO ×2 (12:41→13:22)
== END 2017-11-05 16:15 | disposition home or self-care (01) ==
LOC: D.ER 19:31 → D.M2 21:24 → OBSVTIME 21:24 → D.CLR 11-05 12:46
PROVIDERS: Family Medicine
DX: I25.110 Atherosclerotic heart disease of native coronary artery with unstable angina pectoris (principal); I10 Essential (primary) hypertension; J45.909 Unspecified asthma, uncomplicated; D64.9 Anemia, unspecified; R91.8 Other nonspecific abnormal finding of lung field; K57.90 Diverticulosis of intestine, part unspecified, without perforation or abscess without bleeding
CPT/HCPCS: 93458; C9600

== ENCOUNTER → 2017-12-03 10:09 | Outpatient (CLI) | payer MEDICARE, BC ==
[2017-11-05 04:20] VITALS: BMI 18.7
--- NOTE | ~2017-12-03 | HP ---
PATIENT: JERI HERNANDEZ MEDICAL RECORD: [id number] ACCOUNT: [id number] LOCATION:D : 45 ADMISSION DATE: 11/05/17 PCP: HISTORY AND PHYSICAL EXAMINATION DIAGNOSES: 1. Unstable angina. 2. Shortness of breath, dyspnea on exertion. HISTORY OF PRESENT ILLNESS: Mrs. Hernandez has been having episodes of chest pain, chest discomfort compatible with angina. She has had this for the past week. She noticed it initially with exertion, where it got to the point where any mild exertion would bring on the chest discomfort. Now she had a prolonged episode at rest last night. She has had more episodes at rest since she has been in the hospital. It is a typical anginal heavy sensation with radiation to her neck and down her left arm. She does not have a history of coronary artery disease. She has been worked up for increasing shortness of breath and been put on multiple pulmonary medications for this. Her troponin is normal. PHYSICAL EXAMINATION: GENERAL APPEARANCE: Well-nourished, well-developed, appears stated age. Level of distress, comfortable. PSYCHIATRIC: Mental status, alert, normal affect. Orientation, oriented to time, place and person. EYES: Lids and conjunctiva, noninjected. No discharge, no pallor. ENT: Lips, teeth, gums, normal dentition. Oropharynx, no cyanosis, no pallor. NECK: Carotid arteries, bilateral normal upstroke, no bruits, no thrills. JUGULAR VEINS: No jugular venous pressure or distention. CERVICAL LYMPH NODES: Nontender, nonenlarged. THYROID: Not enlarged. Nontender. No nodules. LUNGS: Respiratory effort, unlabored. CHEST: Normal curvature. No thoracic deformity. No chest wall tenderness. Percussion, resonant. Auscultation, clear. No wheezes, no rales, no rhonchi. CARDIOVASCULAR: Precordial exam, nondisplaced. No heaves or pericardial thrills. Rate and rhythm, regular. Heart sounds, normal S1, normal S2. No S3, no gallop, no rub. Systolic murmur, not heard. Diastolic murmur, not heard. EXTREMITIES: No cyanosis, no edema. Peripheral pulses, full and equal in all extremities, except as noted. No bruits appreciated. ABDOMEN: Soft, nondistended. Normal aorta. No bruit. Nontender. No masses. Liver, nontender, no hepatomegaly. Spleen, nontender, no splenomegaly. MUSCULOSKELETAL: No joint tenderness. No joint swelling. No erythema. NEUROLOGICAL: Normal gait, normal strength, normal tone. SKIN: Warm and dry. OVERALL IMPRESSION: Chest pain compatible with angina with episodes of rest pain, most likely she has hemodynamically significant coronary artery disease that explains her shortness of breath as well as her chest discomfort. We will proceed with coronary angiography. Further care depends upon the findings of the angiography. TRANSINT:[id number] Voice Confirmation ID: [id number] DOCUMENT ID: [id number] HISTORY AND PHYSICAL [id number] JERI HERNANDEZ, SAY ESPINAL at 1146 CC: [id number] DICTATION DATE: 11/05/17847 BROTH MIXER: 11/05/17 09 [facility] [address] [place] [address]
[~2017-12-03 10:09] MED LIST changes: +BROVANA15 MCG/2 M INH; +FLUTICASONE PRO16 GM NASAL; +PLAVIX75 MG PO; +SINGULAIR10 MG PO; +VENTOLIN HFA18 GM INH
== END | disposition home or self-care (01) ==
LOC: D.RT 11-05 13:00
DX: R91.8 Other nonspecific abnormal finding of lung field (principal)

== ENCOUNTER → 2018-12-28 07:30 | Outpatient (CLI) | payer MEDICARE, BC ==
[2017-11-05 04:20] VITALS: BMI 18.7
== END | disposition home or self-care (01) ==
LOC: D.RT 12-11 10:00 → D.CT 12-11 11:00 → D.RT 12-14 08:00 → D.CT 12-14 09:00 → D.RT 07:30
PROVIDERS: ATTEND Internal Medicine Pulmonary Disease
DX: J45.909 Unspecified asthma, uncomplicated (principal); R91.8 Other nonspecific abnormal finding of lung field

== ENCOUNTER 2019-04-15 19:56 | Emergency (ER) | payer MEDICARE, BC ==
[~2019-04-15] VITALS: Ht 152.4 cm; Wt 43.6 kg
[2019-04-15 20:08] VITALS: Ht 152.4 cm; Wt 43.6 kg
[2019-04-15 20:23] LABS: BASOPHILS 0.5 % (0-2); EOSINOPHILS 0.8 % (0-7); HEMATOCRIT 42.4 % (36.0-48.0); IMMATURE GRANULOCYTES 0.3 % (0-5); LYMPHOCYTES 21.1 % (15-50); MCH 30.6 pg (26.0-34.0); MCV 92.8 fL (80.0-100.0); MONOCYTES 8.1 % (2-11); NEUTROPHILS 69.2 % (40-80); PLATELET COUNT 227 10x3/uL (130-400); RBC 4.57 10x6/uL (4.00-5.40); RDW 12.8 % (11.5-14.5); WBC 7.6 10x3/uL (4.8-10.8)
[2019-04-15 20:34] LABS: ANION GAP 10.9 mmol/L (8-16); CALCIUM 8.9 mg/dL (8.5-10.1); CARBON DIOXIDE 28.1 mmol/L (21.0-32.0); CREATININE - SERUM 0.9 mg/dL (0.6-1.3)
[2019-04-15 20:39] LABS: ALBUMIN 3.6 g/dL (3.4-5.0); BILIRUBIN - TOTAL 0.65 mg/dL (0.2-1.3); PROTEIN - SERUM 6.4 g/dL (6.4-8.2)
[2019-04-15] MEDS ORDERED: TAMIFLU75 MG PO (21:09)
[2019-04-15 21:32] VITALS: BP 132/56
== END 2019-04-15 21:33 | disposition home or self-care (01) ==
LOC: D.ER 19:56
PROVIDERS: Family Medicine
DX: J11.1 Influenza due to unidentified influenza virus with other respiratory manifestations (principal)

== ENCOUNTER 2019-04-18 09:40 | Inpatient (IN) | payer MEDICARE, BC ==
[~2019-04-18] VITALS: Ht 152.4 cm; Wt 43.5 kg
[~2019-04-18 09:40] MED LIST changes: +TAMIFLU75 MG PO
[2019-04-18] MEDS ORDERED: PEPCID AC20 MG PO (09:52)
[2019-04-18] MEDS ORDERED: METOPROLOL TART25 MG PO (09:53)
[2019-04-18] MEDS ORDERED: PROAIR HFA8.5 G1 INH (09:54)
[2019-04-18 10:12] LABS: BASOPHILS 0.2 % (0-2); EOSINOPHILS 0.2 % (0-7); HEMATOCRIT 44.3 % (36.0-48.0); HEMOGLOBIN 14.9 g/dL (12-16); IMMATURE GRANULOCYTES 0.4 % (0-5); LYMPHOCYTES 9.5 % (15-50); MCH 30.8 pg (26.0-34.0); MCHC 33.6 g/dL (31.0-37.0); MCV 91.7 fL (80.0-100.0); MEAN PLATELET VOLUME 9.1 fL (7.4-10.4); MONOCYTES 7.8 % (2-11); NEUTROPHILS 81.9 % (40-80); PLATELET COUNT 209 10x3/uL (130-400); RBC 4.83 10x6/uL (4.00-5.40); RDW 12.8 % (11.5-14.5); WBC 8.3 10x3/uL (4.8-10.8)
[2019-04-18 10:39] LABS: BILIRUBIN NEGATIVE (NEGATIVE); GLUCOSE NEGATIVE (NEGATIVE); KETONE MODERATE mg/dL (NEGATIVE); NITRITE POSITIVE (NEGATIVE); SPECIFIC GRAVITY 1.015 (1.005-1.020); UROBILINOGEN NORMAL (NORMAL)
[2019-04-18 10:47] LABS: AMORPHOUS SEDIMENT <1+ /lpf (NONE SEEN); BACTERIA MANY /hpf (NEGATIVE); EPITHELIAL CELLS 0-5 /hpf (0-5); RED CELLS - URINE 0-5 /hpf (0-5); WHITE CELLS - URINE 0-5 /hpf (NEGATIVE)
--- NOTE | 2019-04-18 10:59 | NUR ---
ASSISTED PT TO RESTROOM AND BACK TO BED
--- NOTE | 2019-04-18 11:00 | NUR ---
DR. JAMES AT BEDSIDE.
[2019-04-18 11:03] LABS: CALC OSMOLALITY 269 mosm/kg (275-300); CALCIUM 9.4 mg/dL (8.5-10.1); CARBON DIOXIDE 27.3 mmol/L (21.0-32.0); CHLORIDE - SERUM 100 mmol/L (98-107); CREATININE - SERUM 0.7 mg/dL (0.6-1.3); GLUCOSE 119 mg/dL (74-106); POTASSIUM - SERUM 3.7 mmol/L (3.5-5.1); SODIUM 135 mmol/L (136-145); UREA NITROGEN 11 mg/dL (7-18); eGFR NON AFRICAN AMERICAN 87 mL/min (90-120)
--- NOTE | 2019-04-18 11:15 | NUR ---
PT BROUGHT TO FLOOR VIA WHEELCHAIR. PT A/O X4 AT THIS TIME. NO S/S OF DISTRESS. BED LOW CALL LIGHT WITHIN REACH. PT PLACED ON TELE AT BEDSIDE. WILL CONTINUE TO MONITOR.
[2019-04-18 11:19] LABS: ALBUMIN 3.8 g/dL (3.4-5.0); ALKALINE PHOSPHATASE 40 U/L (30-120); ALT (SGPT) 20 U/L (10-68); BILIRUBIN - TOTAL 0.93 mg/dL (0.2-1.3); PROTEIN - SERUM 6.8 g/dL (6.4-8.2); THYROID STIMULATING HORMONE 1.31 uIU/mL (0.36-3.74)
[2019-04-18 15:30] VITALS: BP 144/71
[2019-04-18 17:42] VITALS: BP 153/75; BMI 18.7
--- NOTE | 2019-04-18 19:15 | NUR ---
RECEIVED REPORT, WILL ASSUME CARE OF PT, LAB IS IN ROOM, PT DENIES ANY NEEDS AT THIS TIME, BED IS LOW, SRX2, CALL LIGHT IN REACH, WILL CONTINUE PLAN OF CARE, AT BEDSIDE
[2019-04-18 20:00] VITALS: BP 144/73
[2019-04-18 20:03] LABS: CKMB 0.7 U/L (0.0-3.6); CREATINE KINASE 48 UL (21-215)
[2019-04-18 20:05] LABS: TROPONIN-I < 0.017 ng/mL (0.000-0.060)
[2019-04-19 00:59] LABS: CKMB 0.8 U/L (0.0-3.6); CREATINE KINASE 62 UL (21-215)
[2019-04-19 01:01] LABS: TROPONIN-I < 0.017 ng/mL (0.000-0.060)
[2019-04-19 06:42] LABS: BASOPHILS 0.4 % (0-2); EOSINOPHILS 0.4 % (0-7); HEMATOCRIT 39.9 % (36.0-48.0); HEMOGLOBIN 13.4 g/dL (12-16); IMMATURE GRANULOCYTES 0.4 % (0-5); LYMPHOCYTES 10.7 % (15-50); MCH 30.7 pg (26.0-34.0); MCHC 33.6 g/dL (31.0-37.0); MCV 91.5 fL (80.0-100.0); MEAN PLATELET VOLUME 9.2 fL (7.4-10.4); MONOCYTES 7.9 % (2-11); NEUTROPHILS 80.2 % (40-80); PLATELET COUNT 208 10x3/uL (130-400); RBC 4.36 10x6/uL (4.00-5.40); RDW 12.7 % (11.5-14.5); WBC 8.3 10x3/uL (4.8-10.8)
[2019-04-19 07:00] LABS: CALC OSMOLALITY 276 mosm/kg (275-300); CALCIUM 7.6 mg/dL (8.5-10.1); CARBON DIOXIDE 23.8 mmol/L (21.0-32.0); CHLORIDE - SERUM 107 mmol/L (98-107); CKMB 0.8 U/L (0.0-3.6); CREATINE KINASE 64 UL (21-215); CREATININE - SERUM 0.8 mg/dL (0.6-1.3); GLUCOSE 136 mg/dL (74-106); MAGNESIUM - SERUM 1.8 mg/dL (1.8-2.4); POTASSIUM - SERUM 3.6 mmol/L (3.5-5.1); SODIUM 138 mmol/L (136-145); TROPONIN-I < 0.017 ng/mL (0.000-0.060); UREA NITROGEN 10 mg/dL (7-18); eGFR NON AFRICAN AMERICAN 74 mL/min (90-120)
--- NOTE | 2019-04-19 07:00 | NUR ---
PT AWAKE AND ALERT SITTING UP IN BED. NO COMPLAINTS AT PRESENT.
[2019-04-19 09:52] VITALS: BP 180/76
[2019-04-19 13:58] VITALS: BP 125/88
[2019-04-19 14:14] VITALS: Ht 152.4 cm; Wt 43.5 kg
[2019-04-19 17:40] VITALS: BP 128/79
[2019-04-19 22:23] VITALS: BP 122/72
[2019-04-20 00:41] VITALS: BP 133/50
--- NOTE | 2019-04-20 03:35 | NUR ---
I have reviewed this patient and I concur with the Shift Assessment completed by the Licensed Practical Nurse today this shift.
[2019-04-20 03:53] VITALS: BP 136/52
[2019-04-20 06:13] LABS: BASOPHILS 0.6 % (0-2); EOSINOPHILS 2.1 % (0-7); HEMATOCRIT 36.3 % (36.0-48.0); HEMOGLOBIN 12.2 g/dL (12-16); IMMATURE GRANULOCYTES 0.6 % (0-5); LYMPHOCYTES 31.3 % (15-50); MCH 30.6 pg (26.0-34.0); MCHC 33.6 g/dL (31.0-37.0); MEAN PLATELET VOLUME 8.8 fL (7.4-10.4); MONOCYTES 13.1 % (2-11); NEUTROPHILS 52.3 % (40-80); PLATELET COUNT 191 10x3/uL (130-400); RBC 3.99 10x6/uL (4.00-5.40); RDW 12.7 % (11.5-14.5)
[2019-04-20 06:21] LABS: WBC 5.3 10x3/uL (4.8-10.8)
[2019-04-20 06:43] LABS: ANION GAP 10.7 mmol/L (8-16); CALCIUM 7.2 mg/dL (8.5-10.1); CARBON DIOXIDE 24.8 mmol/L (21.0-32.0); CREATININE - SERUM 0.8 mg/dL (0.6-1.3); MAGNESIUM - SERUM 1.9 mg/dL (1.8-2.4); POTASSIUM - SERUM 3.5 mmol/L (3.5-5.1)
--- NOTE | 2019-04-20 07:20 | NUR ---
RECIEVE REPORT. ALERT AND ORIENTED X4. SITTING UP IN BED. DENIES ANY NEEDS. CONTINUE PLAN OF CARE AND SAFETY PRECAUTIONS.
[2019-04-20 11:02] VITALS: BP 129/61
[2019-04-20 12:00] VITALS: BP 127/87
[2019-04-20] MEDS ORDERED: LEVOFLOXACIN500 MG PO (14:09)
--- NOTE | 2019-04-20 16:11 | MORECARE ---
CASE MANAGEMENT DISCHARGE SUMMARY PATIENT: JERI LI UNIT: [id number] ADM DATE: 04/18/19 AGE: 73 : 45 SEX: F ROOM/BED: D.1623 AUTHOR: ESTELLA TYLER PHYSICIAN: REFERRING PHYSICIAN: SENDY PRINCE MD DATE OF SERVICE: 04/20/19 Discharge Plan Patient Name: JERI LI Facility: [facility]:[place] : 1945 Planned Disposition: Home Anticipated Discharge Date: 04/20/19 Discharge Date: Expected LOS: 2 Initial Reviewer: [email or web address] Initial Review Date: 04/20/2019 Generated: 04/20/19 5:10 pm Coverage Notice Reviewer: [email or web address] - Tha Hickey Notice Issued Date-Time: 04/20/2019 15:15 Notice Type: IM Discharge Notice Notice Delivered To: Patient Relationship to Patient: Parking Meter Attendant Name: Delivery Method: HAND - Hand Delivered Etta Days: Prior Verbal Notification: Recipient Understood Notice: Yes Recipient Signature: Yes Med Rec Note Co-signed by Attending: Coverage Notice Comment: Patient Name: JERI LI Page [phone] at 1611 All edits/amendments must be made on the electronic document DICTATION DATE: 04/20/19 1610 QUALITY ASSURANCE CALIBRATOR: LIANET 04/20/19 1610 RPT#: [id number] DC DATE: STATUS: ADM IN [place] [address] [place] [address] END OF REPORT
--- NOTE | 2019-04-20 16:21 | MORECARE ---
CASE MANAGEMENT DISCHARGE SUMMARY PATIENT: JERI LI UNIT: [id number] ADM DATE: 04/18/19 AGE: 73 : 45 SEX: F ROOM/BED: D.7428 AUTHOR: NAYELI,DOC PHYSICIAN: REFERRING PHYSICIAN: SENDY PRINCE MD DATE OF SERVICE: 04/20/19 Discharge Plan Patient Name: JERI LI Facility: [facility]:[place] : 1945 Planned Disposition: Home Anticipated Discharge Date: 04/20/19 Discharge Date: Expected LOS: 2 Initial Reviewer: [email or web address] Initial Review Date: 04/20/2019 Generated: 04/20/19 5:21 pm Comments DCP- Discharge Planning Updated by [email or web address]: Tha Hickey on 04/20/19 3:[address] Patient Name: JERI LI Admission Status: ER Accout number: [id number] Admission Date: 04-18-2019 : 1945 Admission Diagnosis: Attending: SENDY PRINCE Current LOS: 2 Anticipated DC Date: 04-20-2019 Planned Disposition: Home Primary Insurance: MEDICARE A & B Discharge Planning Comments: CM MET WITH PT IN ROOM TO DISCUSS DISCHARGE PLANNING AND NEEDS. PT REPORTS LIVING AT HOME INDEPENDENTLY WITH HER SPOUSE. PT HAS CANE, NEB AND STANDARD WALKER FROM [facility]. PT HAS NO OUTSIDE SERVICES ASSISTING IN THE HOME. CM DISCUSSED AVAILABILITY OF HOME HEALTH, REHAB SERVICES AND MEDICAL EQUIPMENT. PT DENIES DISCHARGE NEEDS, REPORTS HER SPOUSE WILL PICK HER UP FOR DISCHARGE HOME. IMPORTANT MESSAGE FROM MEDICARE PROVIDED AND EXPLAINED. DOCTOR OF OPTOMETRY NURSE NOTIFIED. Water Chaser: Tha Hickey DCPIA - Discharge Planning Initial Assessment Updated by [email or web address]: Tha Hickey on 04/20/19 4:13 pm * Is the patient Alert and Oriented? Yes * How many steps to enter\exit or inside your home? NONE * PCP DR. SANTIAGO * Pharmacy [facility] * Preadmission Environment Home with Family * ADLs Independent * Equipment Cane Nebulizer Walker * Other Equipment [facility] - PREFERRED PROVIDER * List name and contact numbers for known caregivers / representatives who currently or will assist patient after discharge: RADHA STEIN, SPOUSE, * Verbal permission to speak to the caregivers and representatives has been obtained from the patient. N/A * Community resources currently utilized None * Please name any agencies selected above. NONE * Additional services required to return to the preadmission environment? No * Can the patient safely return to the preadmission environment? Yes * Has this patient been hospitalized within the prior 30 days at any hospital? No Coverage Notice Reviewer: [email or web address] Minh Hickey Notice Issued Date-Time: 04/20/2019 15:15 Notice Type: IM Discharge Notice Notice Delivered To: Patient Relationship to Patient: Billboard Mechanic Name: Delivery Method: HAND - Hand Delivered Etta Days: Prior Verbal Notification: Recipient Understood Notice: Yes Recipient Signature: Yes Med Rec Note Co-signed by Attending: Coverage Notice Comment: Last DP export: 04/20/19 3:11 p Patient Name: JERI LI Page [phone] at 1621 All edits/amendments must be made on the electronic document DICTATION DATE: 04/20/19 162 BIOCHEMICAL ENGINEER: LIANET 04/20/19 1621 RPT#: [id number] DC DATE: STATUS: ADM IN [facility] [address] [place] [address] END OF REPORT
--- NOTE | 2019-04-20 16:23 | NUR ---
ALERT AND ORIENTED X4. SITTING UP IN BED. DC RT FA IV TIP INTACT. DISCHARGE INSTRUCTIONS GIVEN VERBALLY AND WRITTEN. DISCHARGE PAPERS SIGNED ON CHART. ESCORT TO RIDE VIA WHEELCHAIR. REMAINS FREE FROM INJURY.
== END 2019-04-20 16:33 | disposition home or self-care (01) | DRG 872 ==
LOC: D.ER 09:40 → D.M2 11:23
PROVIDERS: Emergency Medicine; ADMIT Internal Medicine Nephrology; ATTEND Internal Medicine Nephrology
DX: A41.9 Sepsis, unspecified organism (principal); N39.0 Urinary tract infection, site not specified; E87.1 Hypo-osmolality and hyponatremia; I25.10 Atherosclerotic heart disease of native coronary artery without angina pectoris; E03.9 Hypothyroidism, unspecified; B96.20 Unspecified Escherichia coli [E. coli] as the cause of diseases classified elsewhere